=== PATIENT | male | born 1975 | race Caucasian/White ===

== ENCOUNTER 2017-01-02 00:56 | Emergency (ER) | payer OTHER ==
[~2017-01-02] VITALS: Ht 188 cm; Wt 136.1 kg
[2017-01-02] MEDS ORDERED: NKM (01:06)
--- NOTE | 2017-01-02 01:13 | Emergency Room Report ---
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 He banged his right knee onto a railing. Initial tenderness. He kept on working. Swelling at worse where he cant bend his knee. Worse with movement. Has been icing it down but not better. Pain is 7/10. No other injury. Allergies: Coded Allergies: No Known Allergies (Unverified , 01/02/17) Patient History Past Medical History: see triage record, old chart reviewed Past Surgical History: other Pertinent Family History: none Social History: Denies: smoking Immunizations: other Reviewed Nursing Documentation: PMH: Agreed, PSxH: Agreed Nursing Documentation-PMH Past Medical History: No Stated History Review of Systems Eye: Denies: blurred vision, eye pain ENT: Denies: ear pain, nose congestion, throat swelling Respiratory: Denies: cough, shortness of breath Cardiovascular: Denies: chest pain, palpitations Gastrointestinal: Denies: abdominal pain, diarrhea, nausea, vomiting Musculoskeletal: Reports: joint pain, Denies: back pain Skin: Denies: rash Neurological: Denies: headache, numbness Endocrine: Denies: increased thirst, increased urine Hematologic/Lymphatic: Denies: easy bruising All Other Systems: negative except mentioned in HPI Physical Exam Vital Signs Date Time Temp Pulse Resp B/P Pulse Ox O2 Delivery O2 Flow Rate FiO2 01/02/17 00:58 99.0 78 16 165/94 94 Room Air vitals with hypertension Sp02 EP Interpretation: reviewed, normal General Appearance: well appearing, no apparent distress, alert Head: normocephalic, atraumatic Eyes: bilateral eye EOMI, bilateral eye PERRL ENT: hearing grossly normal, normal pharynx Neck: full range of motion, supple, no meningismus Respiratory: chest non-tender, lungs clear, normal breath sounds Cardiovascular #1: regular rate, rhythm, no murmur Gastrointestinal: normal bowel sounds, non tender, no mass, no organomegaly, no bruit, non-distended Musculoskeletal: back normal, gait/station normal, normal range of motion, other - Right knee: Edema over patella. No knee instability. Sensation normal. Neurologic: alert, oriented x3 Psychiatric: mood/affect normal Skin: warm/dry Procedures Splinting Splinting : Consent: Verbal Location: right knee Pre-Made Type: FERNANDEZ wrap Pre-Proc Neuro Vasc Exam: normal Post-Proc Neuro Vasc Exam: normal Patient Tolerated: Well Complications: None Medical Decision Making Diagnostic Impression: Primary Impression: Contusion of right knee, initial encounter ER Course Patient presents with contusion and hematoma to the right knee. No obvious fracture. No ligament injury. Could be a bone bruise. We'll discharge home. Other X-Ray Diagnostic Results Other X-Ray Diagnostic Results : X-Ray Ordered: right knee Date: Jan 02, 2017 Time: 01:59 EP Interpretation: Yes Findings: no fractures, no dislocation, other - Soft tissue swelling Number of Views: 4 Last Vital Signs Date Time Temp Pulse Resp B/P Pulse Ox O2 Delivery O2 Flow Rate FiO2 01/02/17 00:58 99.0 78 16 165/94 94 Room Air Status: improved Disposition: HOME, SELF-CARE Condition: Stable Scripts Ibuprofen* (MOTRIN*) 600 Mg Tablet 600 MG ORAL THREE TIMES A DAY, #30 TAB 0 Refills Prov: DORA REYNOLDS M.D. 01/02/17 Additional Instructions: Followup with Worker's Comp. in 2-3 days. Keep leg elevated. Ice pack to the area. Return if symptom worsen. DORA REYNOLDS M.D. Jan 02, 2017 01:13
[2017-01-02] MEDS ORDERED: IBUPROFEN600 MG ORAL (01:59)
[2017-01-02 02:06] VITALS: BP 165/94
--- NOTE | 2017-01-03 09:34 | Diagnostic Imaging Report ---
Indication: Right knee pain Technique: XRAY KNEE COMP 4 OR MORE VIEWS RIGHT Comparison: None Findings: There is no acute fracture or dislocation. There is marked soft tissue swelling of the anterior knee. No joint effusion is identified. Impression: No acute osseous abnormality. Marked prepatellar soft tissue swelling. Bursitis not excluded. Clinical correlation recommended.
== END 2017-01-02 02:09 | disposition home or self-care (01) ==
LOC: EMR 01:25
DX: S80.01XA Contusion of right knee, initial encounter (principal); W22.09XA Striking against other stationary object, initial encounter; Y92.89 Other specified places as the place of occurrence of the external cause; Y99.0 Civilian activity done for income or pay
CPT/HCPCS: 29530; 99283